=== PATIENT | female | born 1990 | race Asian ===

== ENCOUNTER 2020-08-28 13:05 | Inpatient (IN) | payer OTHER ==
[2020-08-28 14:21] VITALS: BMI 33.2
[2020-08-28] MEDS ORDERED: DINOPROSTONE 10 MG VAGINAL SUPPOSITORY VG ONE (14:48)
[2020-08-28 15:50] LABS: EPI CELLS >36 /uL (0-25.1); HYALINE CASTS 1 /uL (0-3.1); URINE APPEARANCE CLEAR; URINE BACTERIA 1538 /uL (0-1359); URINE BILIRUBIN NEGATIVE (NEGATIVE); URINE COLOR YELLOW; URINE GLUCOSE (UA) NEGATIVE (NEGATIVE); URINE KETONE NEGATIVE (NEGATIVE); URINE LEUK ESTERASE TRACE (NEGATIVE); URINE NITRITE NEGATIVE (NEGATIVE); URINE PROTEIN NEGATIVE (NEGATIVE); URINE RBC 4 /uL (0-23.9); URINE UROBILINOGEN 0.2 mg/dL (0.2-1.0); URINE WBC 39 /uL (0-25.8)
[2020-08-28 16:35] LABS: BASO % 0.3 % (0-2.0); EOS % 1.7 % (0-4.5); HEMATOCRIT 32.9 % (32.4-45.2); LYMPH % 36.8 % (8-40); MCH 30.2 pg (25.7-33.7); MCHC 33.4 g/dl (32.0-36.0); MEAN CELL VOLUME 90.5 fl (80-96); MEAN PLT VOLUME 9.7 fl (7.5-11.1); MONO % 5.4 % (3.8-10.2); NEUT % 55.8 % (42.8-82.8); PLATELET COUNT 226 K/MM3 (134-434); RBC 3.64 M/mm3 (3.60-5.2); RDW 13.8 % (11.6-15.6); WHITE BLOOD COUNT 7.3 K/mm3 (4.0-10.0)
[2020-08-28 16:49] LABS: ACTIVATED PTT 28.2 SECONDS (25.2-36.5); INR 0.97 (0.83-1.09); PROTHROMBIN TIME (PATIENT) 11.9 SEC (9.7-13.0)
[2020-08-28 17:02] LABS: POTASSIUM 3.9 mmol/L (3.5-5.1)
[2020-08-28 17:04] LABS: CALCIUM 9.2 mg/dL (8.5-10.1)
[2020-08-28 17:05] LABS: ALBUMIN 2.6 g/dl (3.4-5.0); BLOOD UREA NITROGEN 6.5 mg/dL (7-18)
[2020-08-28 17:06] LABS: CREATININE 0.8 mg/dL (0.55-1.3); URIC ACID 4.6 mg/dL (2.6-7.2)
[2020-08-28 17:09] LABS: BILIRUBIN,TOTAL 0.5 mg/dL (0.2-1); TOT PROT 7.1 g/dl (6.4-8.2)
[2020-08-28] MEDS ORDERED: LACTATED RINGERS SOLUTION 1,000 ML/1,000 ML INFUS.BAG IV SCH (17:45)
[2020-08-28] MEDS ORDERED: INSULIN (NOVOLOG) ASPART 100 UNITS/ML 10ML VIAL SQ ONE (22:00)
[2020-08-28] MEDS ORDERED: LIDOCAINE HCL 1% PRESERVATIVE FREE - 30ML VIAL ONE (23:22)
[2020-08-28] MEDS ORDERED: OXYTOCIN 20 UNITS in 0.9% NS 20 UNIT/1,000 ML INFUS.BAG IV ONE (23:22)
[2020-08-28] MEDS ORDERED: NALOXONE HCL 0.4 MG/ML VIAL IVPUSH PRN (23:39)
[2020-08-28] MEDS ORDERED: PCA PUMP NR ONE (23:42)
[2020-08-28] MEDS ORDERED: FENTANYL/BUPIVACAINE/NS/PF - PCEA - 50 ML DISP.SYRIN EP ONE (23:42)
[2020-08-28] MEDS ORDERED: LIDO 2%/EPI 1:200000 PRESRVFRE (20 ML SDVIAL) ONE (23:43)
[2020-08-28] MEDS ORDERED: FENTANYL/BUPIVACAINE/NS/PF - PCEA - 50 ML DISP.SYRIN EP SCH (23:45)
[2020-08-29] MEDS: DEXTROSE 5%-LACTATED RINGERS 1,000 ML IV SCH ×2 (03:50→10:30)
[2020-08-29] MEDS ORDERED: FENTANYL/BUPIVACAINE/NS/PF - PCEA - 50 ML DISP.SYRIN EP ONE ×3 (04:14→10:49)
[2020-08-29] MEDS ORDERED: OXYTOCIN 30 UNITS in 0.9% NS 30 UNIT/500 ML INFUS.BAG IVPB ONE (07:37)
[2020-08-29] MEDS ORDERED: OXYTOCIN 30 UNITS in 0.9% NS 30 UNIT/500 ML INFUS.BAG IVPB SCH (07:45)
[2020-08-29] MEDS ORDERED: LIDOCAINE HCL 1% PRESERVATIVE FREE - 30ML VIAL ONE (11:16)
[2020-08-29] MEDS ORDERED: WITCH HAZEL 50% (TUCKS) 40 PAD/JAR PAD TP PRN (13:31)
[2020-08-29] MEDS ORDERED: BISACODYL 10 MG SUPP.RECT RC PRN (13:31)
[2020-08-29] MEDS ORDERED: METHYLERGONOVINE MALEATE 0.2 MG/1 ML AMP IM PRN (13:31)
[2020-08-29] MEDS ORDERED: BENZOCAINE 28 GM HEMORRHOIDAL OINTMENT TP PRN (13:31)
[2020-08-29] MEDS ORDERED: BENZOCAINE 20% 57 GM BOTTLE TP PRN (13:31)
[2020-08-29] MEDS ORDERED: OXYTOCIN 20 UNITS in 0.9% NS 20 UNIT/1,000 ML INFUS.BAG IV SCH (13:45)
[2020-08-29 14:08] LABS: CORD HCO3 21.6 mmHg (20-29); CORD PCO2 71.8 mmHg (30-78); CORD pH 7.096 (7.14-7.44)
[2020-08-29 14:13] LABS: CORD BASE EXCESS -6.3 mmol/L (0-2); CORD PCO2 53.3 mmHg (30-78); CORD pH 7.233 (7.14-7.44)
[2020-08-29] MEDS ORDERED: IBUPROFEN 600 MG TABLET (FP) PO ONE (14:39)
[2020-08-29] MEDS ORDERED: ACETAMINOPHEN 325 MG TABLET (FP) ONE (14:39)
[2020-08-29] MEDS: IBUPROFEN 600 MG TABLET (FP) PO PRN ×3 (14:40→22:09)
[2020-08-29] MEDS: ACETAMINOPHEN 325 MG TABLET (FP) PO PRN ×3 (14:40→22:09)
[2020-08-29] MEDS: FERROUS SO4 325 MG TABLET (FP) PO SCH (22:09)
[2020-08-29] MEDS: SENNOSIDES/DOCUSATE COMBO (SENNA PLUS) TABLET (UD) PO PRN (22:10)
[2020-08-30] MEDS: ACETAMINOPHEN 325 MG TABLET (FP) PO PRN ×4 (03:30→21:07)
[2020-08-30] MEDS: IBUPROFEN 600 MG TABLET (FP) PO PRN ×4 (03:30→21:06)
[2020-08-30 08:37] LABS: BASO % 0.2 % (0-2.0); EOS % 1.1 % (0-4.5); HEMATOCRIT 25.8 % (32.4-45.2); HEMOGLOBIN 8.3 GM/dL (10.7-15.3); LYMPH % 23.4 % (8-40); MCH 29.5 pg (25.7-33.7); MCHC 32.4 g/dl (32.0-36.0); MEAN PLT VOLUME 9.2 fl (7.5-11.1); MONO % 5.8 % (3.8-10.2); NEUT % 69.5 % (42.8-82.8); PLATELET COUNT 181 K/MM3 (134-434); RBC 2.83 M/mm3 (3.60-5.2); WHITE BLOOD COUNT 13.6 K/mm3 (4.0-10.0)
[2020-08-30] MEDS: PRENATAL VITAMINS W/ FOLIC ACID TABLET (FP) PO SCH (11:59)
[2020-08-30] MEDS: FERROUS SO4 325 MG TABLET (FP) PO SCH ×2 (11:59→21:06)
[2020-08-30] MEDS: SENNOSIDES/DOCUSATE COMBO (SENNA PLUS) TABLET (UD) PO PRN (21:06)
[2020-08-31] MEDS: IBUPROFEN 600 MG TABLET (FP) PO PRN ×2 (06:08→09:53)
[2020-08-31] MEDS: ACETAMINOPHEN 325 MG TABLET (FP) PO PRN ×2 (06:09→09:53)
[2020-08-31] MEDS: PRENATAL VITAMINS W/ FOLIC ACID TABLET (FP) PO SCH (09:53)
[2020-08-31] MEDS: FERROUS SO4 325 MG TABLET (FP) PO SCH (09:53)
[2020-08-31 11:35] VITALS: BP 117/69; PULSE 89; TEMP 97.9
== END 2020-08-31 11:45 | disposition home or self-care (01) | DRG 560 ==
LOC: JDEL 13:05 → JLDR 13:55 → J3W 08-29 15:22
PROVIDERS: ADMIT Obstetrics & Gynecology; ATTEND Obstetrics & Gynecology
PROC: 10E0XZZ Delivery of Products of Conception, External Approach (ICD-10-PCS; principal; 2020-08-29)
PROC: 0W8NXZZ Division of Female Perineum, External Approach (ICD-10-PCS; 2020-08-29)
DX: O24.429 Gestational diabetes mellitus in childbirth, unspecified control (principal); O41.03X0 Oligohydramnios, third trimester, not applicable or unspecified; O16.4 Unspecified maternal hypertension, complicating childbirth; Z3A.39 39 weeks gestation of pregnancy; Z37.0 Single live birth
CPT/HCPCS: 36415; 36600; 59025; 59409; 80053; 81003; 82565; 82803; 82962; 83615; 84156; 84550; 85025; 85610; 85730; 86780; 86850; 86900; 86901; C9803; U0003

== ENCOUNTER → 2021-08-09 | Emergency (ER) | payer OTHER ==
[2021-08-09 14:16] VITALS: BP 107/71; PULSE 86; TEMP 98.7; BMI 29.7
== END ==
LOC: JER 13:59
DX: R51.9 Headache, unspecified (principal); R09.81 Nasal congestion
CPT/HCPCS: 99281-25